=== PATIENT | male | born 1960 | race Two or more races ===

== ENCOUNTER 2024-08-07 11:29 | Inpatient (IN) | payer OTHER, SELFPAY ==
[~2024-08-07] VITALS: Ht 175.3 cm; Wt 118.0 kg
[2024-08-07 12:13] LABS: Basophils # (auto) 0 10 ^3/uL (0-0.2); Eosinophils # (auto) 0.2 10 ^3/uL (0-0.8); Hemoglobin 11.7 g/dL (13.5-17.5); Lymphocytes # (auto) 0.9 10 ^3/uL (0.4-5.4); Monocytes # (auto) 0.7 10 ^3/uL (0-1.3); White Blood Cell 5.8 10^3/uL (4.4-10.8)
[2024-08-07 12:14] LABS: Basophils % (auto) 0.7 % (0.0-2.0); Eosinophils % (auto) 2.9 % (0.0-7.0); Hematocrit 36.1 % (41.0-53.0); Lymphocytes % (auto) 15.3 % (10.0-50.0); Mean Corpuscular Hemoglobin 25.2 pg (28.0-32.0); Mean Corpuscular Hgb Conc. 32.5 g/dL (32.0-36.0); Mean Corpuscular Volume 77.5 fL (80.0-100.0); Monocytes % (auto) 12.7 % (0.0-12.0); Neutrophils % (auto) 68.4 % (37.0-80.0); Platelet Count (auto) 183 10^3/uL (140-450); Red Blood Cells 4.66 10^6/uL (4.5-5.90); Red Cell Distribution Width 15.4 % (11.8-14.3)
--- NOTE | 2024-08-07 12:31 | DVH ---
CHEST RADIOGRAPH Indication: SOB Technique: Single frontal view of the chest was obtained Comparison: None FINDINGS: Lines and Tubes: None Lungs: No focal consolidation. Pleura: No effusion. No pneumothorax. Cardiomediastinal contours: Unremarkable Bones: No acute osseous abnormality. IMPRESSION: No acute cardiopulmonary disease.
--- NOTE | 2024-08-07 12:33 | ED.PDOC ---
SOB-HPI HPI Comments 63y M who presents to the ED via EMS for chief complaint of shortness of breath. EMS states pt was at work earlier this AM and states while at work, he was lifting something and states he started to feel lower back pain radiating to his neck with associated unsteady gait. 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 Pt in the ED, is otherwise alert and oriented x4 and able to answer all questions. Pt otherwise has no changes in gait, vision, or speech. Pt has noted BP of 99/54 in the ED, with noted 02 sat of 100% on room air. Pt otherwise denies any other symptoms at this time. Chief Complaint: Shortness of Breath Time Seen by MD: 12:19 Primary Care Provider: TANISHA Reviewed notes: Nurses Notes Information Source: Patient, Emergency Med Personnel Mode of Arrival: EMS Brought in by: EMS Severity: Moderate Timing: Minutes, Hours Duration: Since onset Context: At Rest, With Light Exertion PE Risk Factors: None History of: None Prehospital treatment: None Modifying Factors: Exertion Associated Signs and Symptoms: Cough If cough with SOB: Non-Productive Past Medical History PAST MEDICAL HISTORY: HTN Surgical History (Other): L knee, bilateral hands Family History Family History: Unknown Social History Smoker: Non-Smoker Alcohol: Denies ETOH Use Drugs: Denies Drug Use Lives In: Home Constitutional: denies: chills, diaphoresis, fatigue, fever, malaise, sweats, weakness, others EENTM: denies: blurred vision, double vision, ear bleeding, ear discharge, ear drainage, ear pain, ear ringing, eye pain, eye redness, hearing loss, mouth pain, mouth swelling, nasal discharge, nose bleeding, nose congestion, nose pain, photophobia, tearing, throat pain, throat swelling, voice changes, others Respiratory: reports: shortness of breath; denies: cough, hemoptysis, orthopnea, SOB at rest, SOB with excertion, stridor, wheezing, others Cardiovascular: denies: chest pain, dizzy spells, diaphoresis, Dyspnea on exertion, edema, irregular heart beat, left arm pain, lightheadedness, palpitations, PND, syncope, others Gastrointestinal: denies: abdomen distended, abdominal pain, blood streaked bowels, constipated, diarrhea, dysphagia, difficulty swallowing, hematemesis, melena, nausea, poor appetite, poor fluid intake, rectal bleeding, rectal pain, vomiting, others Genitourinary: denies: burning, dysuria, flank pain, frequency, hematuria, incontinence, penile discharge, penile sore, pain, testicle pain, testicle swelling, urgency, others Neurological: denies: dizziness, fainting, headache, left sided numbness, left sided weakness, numbness, paresthesia, pre-existing deficit, right sided numbness, right sided weakness, seizure, speech problems, tingling, tremors, weakness, others Musculoskeletal: reports: back pain; denies: gout, joint pain, joint swelling, muscle pain, muscle stiffness, neck pain, others Integumetry: denies: bruises, change in color, change in hair/nails, dryness, laceration, lesions, lumps, rash, wounds, others Allergic/Immunocompromised: denies: Difficulty Healing, Frequent Infections, Hives, Itching, others Hematologic/Lymphatic: denies: anemia, blood clots, easy bleeding, easy bruising, swollen glands, others Endocrine: denies: excessive hunger, excessive sweating, excessive thirst, excessive urination, flushing, intolerance to cold, intolerance to heat, unexplained weight gain, unexplained weight loss, others Psychiatric: denies: anxiety, bipolar disorder, depression, hopeless, panic disorder, schizophrenia, sleepless, suicidal, others All Other Systems: Reviewed and Negative Physical Exam General Appearance: Moderate Distress, Obese HEENT: Normal ENT Inspection, Pharynx Normal, TMs Normal Neck: Full Range of Motion, Non-Tender, Normal, Normal Inspection Respiratory: Chest Non-Tender, Lungs Clear, No Accessory Muscle Use, No Respiratory Distress, Normal Breath Sounds Cardiovascular: No Edema, No JVD, No Murmur, No Gallop, Normal Peripheral Pulses, Regular Rate/Rhythm Breast Exam: Deferred Gastrointestinal: No Organomegaly, Non Tender, No Pulsatile Mass, Normal Bowel Sounds, Soft Genitalia: Deferred Pelvic: Deferred Rectal: Deferred Extremities: No calf tenderness, Normal capillary refill, Normal inspection, Normal range of motion, Non-tender, No pedal edema Musculoskeletal : Apperance: Normal 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 Was a procedure done?: No Differential Dx Differential Diagnosis: Bronchitis, CHF, COPD, Dysrhythmia, Hypertension, Myocardial infarction, Pneumonia, Respiratory Distress, Pharyngitis, URI X-Ray, Labs, Meds, VS Vital Signs Date Time Temp Pulse Resp B/P (MAP) Pulse Ox O2 Delivery O2 Flow Rate FiO2 08/07/24 19:17 98.6 75 132/63 (86) 96 98.6 08/07/24 12:33 76 08/07/24 11:47 16 100 Room Air* 0 21 08/07/24 11:42 98.0 64 16 99/54 (69) 100 08/07/24 11:37 76 Lab Test 08/07/24 18:34 08/07/24 13:07 08/07/24 11:59 Range/Units Urine Color Light-orange Yellow Urine Clarity Clear Clear Urine pH 6.0 5.0-9.0 Urine Specific [place] > 1.050 H 1.001-1.035 Urine Protein 1+ H Negative Urine Ketones Negative Negative Urine Blood Negative Negative /uL Urine Nitrite Negative Negative Urine Bilirubin Negative Negative Urine Urobilinogen Normal Negative mg/dL Urine Leukocyte Esterase Negative Negative /uL Urine RBC 1 0 - 3 /hpf Urine Microscopic WBC 1 0-3 /HPF Urine Squamous Epithelial Cells Few <5 /hpf Urine Bacteria None seen None Seen /hpf Urine Mucus Few None Seen Urine Glucose Normal Normal mg/dL Troponin I High Sensitivity 6 8 </=54 ng/L White Blood Count 5.8 4.4-10.8 10^3/uL Red Blood Count 4.66 4.5-5.90 10^6/uL Hemoglobin 11.7 L 13.5-17.5 g/dL Hematocrit 36.1 L 41.0-53.0 % Mean Corpuscular Volume 77.5 L 80.0-100.0 fL Mean Corpuscular Hemoglobin 25.2 L 28.0-32.0 pg Mean Corpuscular Hemoglobin Concent 32.5 32.0-36.0 g/dL Red Cell Distribution Width 15.4 H 11.8-14.3 % Platelet Count 183 140-450 10^3/uL Mean Platelet Volume 8.9 6.9-10.8 fL Neutrophils (%) (Auto) 68.4 37.0-80.0 % Lymphocytes (%) (Auto) 15.3 10.0-50.0 % Monocytes (%) (Auto) 12.7 H 0.0-12.0 % Eosinophils (%) (Auto) 2.9 0.0-7.0 % Basophils (%) (Auto) 0.7 0.0-2.0 % Neutrophils # (Auto) 4.0 1.6-8.6 10 ^3/uL Lymphocytes # (Auto) 0.9 0.4-5.4 10 ^3/uL Monocytes # (Auto) 0.7 0-1.3 10 ^3/uL Eosinophils # (Auto) 0.2 0-0.8 10 ^3/uL Basophils # (Auto) 0 0-0.2 10 ^3/uL Nucleated Red Blood Cells 0.0 % D-Dimer, Quantitative 1.41 H 0.0-0.49 mg/L FEU Sodium Level 138 136-145 mmol/L Potassium Level 4.2 3.5-5.1 mmol/L Chloride Level 107 98-107 mmol/L Carbon Dioxide Level 23 20-31 mmol/L Anion Gap 8 5-15 Blood Urea Nitrogen 31 H 9-23 mg/dL Creatinine 1.46 H 0.700-1.30 mg/dL Glomerular Filtration Rate Calc 54 >90 mL/min BUN/Creatinine Ratio 21.2 H 10.0-20.0 Serum Glucose 85 74-106 mg/dL Calcium Level 9.3 8.7-10.4 mg/dL B-Type Natriuretic Peptide 5.33 0-100 pg/mL PROCEDURE(s): CXRP - CHEST PORTABLE FINDINGS: Lines and Tubes: None Lungs: No focal consolidation. Pleura: No effusion. No pneumothorax. The patient's CBC is within normal limits The chemistry panel is within limits The patient's D-dimer was done in is elevated at this time At this time patient was being admitted The patient a CT scan done of the chest to rule out pulmonary embolism The findings were negative The patient was Images Reviewed?: Images reviewed and evaluated by me Time of 1ST Reevaluation: 12:50 Reevaluation 1ST: Unchanged Patient Education/Counseling: Diagnosis, Treatment Family Education/Counseling: No Family Present Additional Information - I reviewed the following notes from patient's past medical encounters: - The following tests were ordered, and results were reviewed by me: (Labs, X- Ray, EKG): CBC, chest x-ray, troponin x 3, bmp, UA, BNP, d-dimer, bmp, EKG x1 - Additional information was gathered from interviewing the following independent Historian: (Family, Other Providers, EMT): EMS, - I reviewed and agreed with the following test results read by other provider: (X-ray, CT, US): radiologist - I discussed treatments and results with medical personnel and: (consultants, family): none Departure 1 Departure Time of Disposition: 20:47 Impression: Primary Impression: Acute dyspnea Additional Impressions: Elevated d-dimer Acute chest pain Disposition: ADMITTED INPATIENT Admit to: Tele Condition: Fair Critical Care Note Critical Care Time?: No Stability Stability form required: Yes Unstable for transfer: Telemetry monitoring (Telemetry monitoring required), ED Physician Assesment (Clinical assesment) Heart Score Heart Score: Heart Score Response (Comments) Value History Slightly Suspicious 0 EKG Normal 0 Age 45-64 1 Risk Factors 1 or 2 risk factors 1 Troponin Normal limit 0 Total 2 I personally scribed for SANAZ DORAN MD ([email or web address]) on 08/07/24 at 12:33. Electronically submitted by Heena Velazquez ([email or web address]). I personally scribed for SANAZ DORAN MD ([email or web address]) on 08/07/24 at 12:39. Electronically submitted by Heena Velazquez ([email or web address]). SANAZ DORAN MD Aug 07, 2024 12:33
[2024-08-07 13:27] LABS: Chloride 107 mmol/L (98-107); Potassium 4.2 mmol/L (3.5-5.1); Sodium 138 mmol/L (136-145)
[2024-08-07 13:28] LABS: Anion Gap 8 (5-15); Calcium 9.3 mg/dL (8.7-10.4); Carbon Dioxide 23 mmol/L (20-31)
[2024-08-07 13:33] LABS: BUN/Creatinine Ratio 21.2 (10.0-20.0); Glucose 85 mg/dL (74-106)
[2024-08-07 13:37] LABS: Blood Urea Nitrogen 31 mg/dL (9-23)
[2024-08-07] MEDS: IOHEXOL 350 MG/ML 100ML IJ ONE (17:25)
--- NOTE | 2024-08-07 18:44 | DVH ---
PROCEDURE: CT CT ANGIO CHEST CONTRAST 08/07/2024 06:03 PM INDICATION: sob COMPARISON: None TECHNIQUE: Coverage: Thorax IV contrast: Administered Phases: Arterial Multiplanar 3-D Maximum Intensity Projection images (MIP) reconstructions were created by the technfranc contreras in the coronal and sagittal planes as part of the CT angiography protocol. Adverse events: None Medication laboratory values were reviewed to verify the patient meets criteria for contrast administ ration. All CT scans at this medical facility are performed using dose modulation techniques as appropriate t o a performed exam including the following: Automated exposure control was utilized; adjustment of th e MA and/or KV according to patient size; and use of iterative reconstruction technique. Radiation dose: CTDIvol 28, 11 mGy, DLP 1041 mGy*cm. FINDINGS: Cardiovascular: No evidence of acute or chronic pulmonary emboli identified. Aorta is normal in calib er. The heart is normal in size. Lungs: No focal consolidation. No pleural effusion. No pneumothorax. The airways are patent. Thyroid: Unremarkable Esophagus: Unremarkable. Lymphatics: No hilar or mediastinal lymphadenopathy. Bones/soft tissues: No acute abnormality. Upper abdomen: No acute abnormality. Hepatomegaly and hepatic steatosis. Other: None. IMPRESSION: 1. No evidence of acute pulmonary emboli. No acute cardiopulmonary disease.
[2024-08-07 19:23] LABS: Urine Bacteria None Seen /hpf (None Seen)
[2024-08-07 19:48] LABS: Urine Blood Negative /uL (Negative); Urine Clarity Clear (Clear); Urine Color Light-Orange (Yellow); Urine Mucus FEW (None Seen); Urine Protein, UAD 1+ (Negative); Urine Squamous Epithelial Cell FEW /hpf (<5); Urine Urobilinogen Normal (Negative); Urine WBC 1 /HPF (0-3)
[2024-08-07 19:54] LABS: Urine Specific Gravity > 1.050 (1.001-1.035)
[2024-08-07 21:00] VITALS: BP 93/53; PULSE 86; RESP 17; TEMP 98.2; O2SAT 100
--- NOTE | 2024-08-07 22:39 | DVHHPRES ---
History of Present Illness Resident Creating Document: STACI LEE RESDIENT History of Present Illness This is a 63-year-old male with past medical history of hypertension, brought to the hospital due to low back pain. Per patient, today morning, after lifting something he has felt severe low back pain which was radiating to the neck. He also reports of blurry vision, dizziness and shortness of breaths. Patient states, due to dizziness he had to lie on the ground, but did not loss consciousness. PMHx: Hypertension PSHx: Not significant Social history: Ex-smoker, ex alcohol user, lives at home, denies any other drug use Home medication: Telmisartan Allergic history: No known allergies Review of Systems Review of Systems General: patient denies fever, fatigue, weaknes, sweating, any recent changes in appetite and weight HEENT: Reports dizziness and blurry vision, and sore throat since 2 days Cardiovascular: Denies chest pain, palpitations, dyspnea on exertion, orthopnea, or claudication. Respiratory: Reports shortness of breath Gastrointestinal: Denies nausea, vomiting, dysphagia, odynophagia, heartburn, abdominal pain, flatulence, bloating, diarrhea, constipation, change in stool, or blood in stool. Genitourinary: No dysuria, hematuria, discharge, frequency, urgency, nocturia, incontinence, and urinary retention. Endocrine: No heat or cold intolerance, polydipsia, polyuria, and polyphagia. Neurological: No dizziness, extremity weakness and numbness, tremors, gait disturbance, seizures, and memory impairment. Psychiatric: Denies depression, anxiety,or insomnia. Musculoskeletal: Reports low back pain radiating to the neck Skin: No rashes, itching, skin lesion, changes in hair, nail, skin texture and breast. Hematologic/Lymphatic: Denies easy bruising, bleeding tendencies, or lymph node enlargement. Allergies: Coded Allergies: NO KNOWN ALLERGIES (Unverified , 08/07/24) Exam Vital Signs Vital Signs Date Time Temp Pulse Resp B/P (MAP) Pulse Ox O2 Delivery O2 Flow Rate FiO2 08/07/24 19:17 98.6 75 132/63 (86) 96 98.6 08/07/24 11:47 16 Room Air* 0 21 Exam General Appearance: Alert, Oriented X3, Cooperative, No acute distress HEENT: Atraumatic, PERRLA, EOMI, Mucous membrane moist/pink Respiratory: Clear to auscultation, Normal air movement Cardiovascular: Regular rate, Normal S1, Normal S2, No murmurs, no chest wall tenderness Abdominal: Normal bowel sounds, Soft, No tenderness, No hepatospenomegaly, No masses Extremities: No clubbing, No cyanosis, No edema, Normal pulses, No tenderne ss/swelling Skin: No rashes, No breakdown, No significant lesion Neurological exam: Detailed neurological exam was performed, no motor deficits, no sensory deficits, normal gait and balance, no Babinski sign, at the time of examination there was also no back tenderness Psych/Mental Status: Mental status NL, Mood NL Labs/Xrays Labs Test 08/07/24 18:34 08/07/24 13:07 08/07/24 11:59 Range/Units Urine Color Light-orange Yellow Urine Clarity Clear Clear Urine pH 6.0 5.0-9.0 Urine Specific [place] > 1.050 H 1.001-1.035 Urine Protein 1+ H Negative Urine Ketones Negative Negative Urine Blood Negative Negative /uL Urine Nitrite Negative Negative Urine Bilirubin Negative Negative Urine Urobilinogen Normal Negative mg/dL Urine Leukocyte Esterase Negative Negative /uL Urine RBC 1 0 - 3 /hpf Urine Microscopic WBC 1 0-3 /HPF Urine Squamous Epithelial Cells Few <5 /hpf Urine Bacteria None seen None Seen /hpf Urine Mucus Few None Seen Urine Glucose Normal Normal mg/dL Troponin I High Sensitivity 6 </=54 ng/L White Blood Count 5.8 4.4-10.8 10^3/uL Red Blood Count 4.66 4.5-5.90 10^6/uL Hemoglobin 11.7 L 13.5-17.5 g/dL Hematocrit 36.1 L 41.0-53.0 % Mean Corpuscular Volume 77.5 L 80.0-100.0 fL Mean Corpuscular Hemoglobin 25.2 L 28.0-32.0 pg Mean Corpuscular Hemoglobin Concent 32.5 32.0-36.0 g/dL Red Cell Distribution Width 15.4 H 11.8-14.3 % Platelet Count 183 140-450 10^3/uL Mean Platelet Volume 8.9 6.9-10.8 fL Neutrophils (%) (Auto) 68.4 37.0-80.0 % Lymphocytes (%) (Auto) 15.3 10.0-50.0 % Monocytes (%) (Auto) 12.7 H 0.0-12.0 % Eosinophils (%) (Auto) 2.9 0.0-7.0 % Basophils (%) (Auto) 0.7 0.0-2.0 % Neutrophils # (Auto) 4.0 1.6-8.6 10 ^3/uL Lymphocytes # (Auto) 0.9 0.4-5.4 10 ^3/uL Monocytes # (Auto) 0.7 0-1.3 10 ^3/uL Eosinophils # (Auto) 0.2 0-0.8 10 ^3/uL Basophils # (Auto) 0 0-0.2 10 ^3/uL Nucleated Red Blood Cells 0.0 % D-Dimer, Quantitative 1.41 H 0.0-0.49 mg/L FEU Sodium Level 138 136-145 mmol/L Potassium Level 4.2 3.5-5.1 mmol/L Chloride Level 107 98-107 mmol/L Carbon Dioxide Level 23 20-31 mmol/L Anion Gap 8 5-15 Blood Urea Nitrogen 31 H 9-23 mg/dL Creatinine 1.46 H 0.700-1.30 mg/dL Glomerular Filtration Rate Calc 54 >90 mL/min BUN/Creatinine Ratio 21.2 H 10.0-20.0 Serum Glucose 85 74-106 mg/dL Calcium Level 9.3 8.7-10.4 mg/dL B-Type Natriuretic Peptide 5.33 0-100 pg/mL Assessment/Plan Assessment/Plan Presyncope Head CT scan Echocardiogram Ruled out pulmonary emboli D-dimer is increased Chest CT angiography is normal Possible muscle strain On physical examination there was no neurological deficits Tylenol p.r.n. Possible JOSEPH, likely VMN IV fluid History of hypertension Held telmisartan due to possible JOSEPH Mild anemia, hypochromic microcytic Monitoring Vitamin-D deficiency, repleted DIET: Cardiac CODE STATUS: Goal of care discussed for more than 21 minutes, full code DISPOSITION: Telemetry Patient's status and paln discussed with the patient. Case discussed with Dr. Wise. Plan discussed with: Patient, Other My Orders Orders - STACI LEE RESDIWILMER Procedure Category Date Status Time Admit ADMIT 08/07/24 Transmitted 22:19 Stat Ekg For Chest RUPINDER 08/07/24 In Process Pain 22:19 Notify Md Of Changes RUPINDER 08/07/24 In Process From Base 22:19 Date of Service: Aug 07, 2024 Billing Provider: SHEILA WISE MD Common Visit Codes: [id number] INP/OBS CARE (HIGH) STACI LEE RESDIENT Aug 07, 2024 22:39 SHEILA WISE MD Aug 08, 2024 23:09
[2024-08-07] MEDS ORDERED: SODIUM CHLORIDE 0.9% 500 ML IV ONE (22:45)
[2024-08-07 23:32] LABS: Sodium Urine 31 mmol/L (40-220)
[2024-08-07 23:37] LABS: Protein, Urine 26.8 mg/dL (1-14)
[2024-08-07 23:39] LABS: Amphetamine Screen, Urine Pos (NEGATIVE); Barbiturate Scree,Urine Neg (NEGATIVE); Benzodiazephine Screen, Urine Neg (NEGATIVE); Cannabinoid Screen, Urine Pos (NEGATIVE); Cocaine Screen, Urine Neg (NEGATIVE); Opiate Scree,Urine Neg (NEGATIVE); Phencyclidine Screen, Urine Neg (NEGATIVE)
[2024-08-07 23:39] LABS: Triglycerides 100 mg/dL (< 150)
--- NOTE | 2024-08-07 23:39 | DVH ---
CLINICAL HISTORY: Raised d dimer TECHNIQUE: Color and duplex doppler imaging of the bilateral lower extremity veins was performed. Ves laura compression if possible was also performed. WID: COMPARISON: None FINDINGS: Right Lower Extremity: Right common femoral vein: Normal compressibility and flow. Right femoral vein: Normal compressibility and flow. Right popliteal vein: Normal compressibility and flow. Proximal calf veins are normally compressible. Left Lower Extremity: Left common femoral vein: Normal compressibility and flow. Left femoral vein: Normal compressibility and flow. Left popliteal vein: Normal compressibility and flow. Proximal calf veins are normally compressible. IMPRESSION: NO SONOGRAPHIC EVIDENCE FOR DEEP VENOUS THROMBOSIS IN THE BILATERAL LOWER EXTREMITY VEINS.
[2024-08-07 23:40] LABS: LDL Cholesterol 83 mg/dL (< 100)
[2024-08-07 23:41] LABS: Cholesterol 133 mg/dL (< 200); HDL Cholesterol 41 mg/dL (40-59)
[2024-08-08] VITALS (8 sets, daily range): BP systolic 89–137; BP diastolic 43–71; PULSE 65–85; RESP 15–18; TEMP 97.8–98.4; O2SAT 94–99
[2024-08-08 00:05] LABS: Folate (Folic Acid) 18.49 ng/mL (>5.38)
[2024-08-08] MEDS: SODIUM CHLORIDE 0.9% 1,000 ML IV SCH (02:07)
[2024-08-08] MEDS ORDERED: ACETAMINOPHEN 325 MG TAB PO PRN (03:30)
[2024-08-08] MEDS: ERGOCALCIFEROL 50,000 UNIT(1.25MG) CAP PO SCH (04:12)
--- NOTE | 2024-08-08 04:37 | DVH ---
Carotid Duplex Date: 08/07/2024 11:09 PM Clinical History: syncope Comparison: None Technique: Duplex Doppler evaluation of the extracranial carotid and vertebral arteries including color Doppler and spectral/pulsed waveform analysis was performed. Findings: RIGHT SIDE: Mild atherosclerotic disease in the right carotid bulb. The peak systolic velocities are 114 cm/s in the distal CCA and 122 cm/s in the proximal ICA.The ICA/ CCA ratio is 1.1. The external carotid artery is patent with peak systolic velocity of 143 cm/s proximally. There is appropriate antegrade flow in the right vertebral artery. LEFT SIDE: The peak systolic velocities are 116 cm/s in the distal CCA and 123 cm/s in the proximal ICA.. The I CA/CCA ratio is 1.1. The external carotid artery is patent with peak systolic velocity of 133 cm/s proximally. There is appropriate antegrade flow in the left vertebral artery. IMPRESSION: 1. No hemodynamically significant stenosis noted in the right carotid system. 2. No hemodynamically significant stenosis noted in the left carotid system. 3. Reference: Radiology 2003; 229:340-346
[2024-08-08 07:17] LABS: Hemoglobin 9.7 g/dL (13.5-17.5); Mean Corpuscular Volume 76.8 fL (80.0-100.0)
[2024-08-08 07:21] LABS: Hematocrit 30.2 % (41.0-53.0); Mean Corpuscular Hemoglobin 24.6 pg (28.0-32.0); Mean Corpuscular Hgb Conc. 32.1 g/dL (32.0-36.0); Platelet Count (auto) 153 10^3/uL (140-450); Red Blood Cells 3.93 10^6/uL (4.5-5.90); Red Cell Distribution Width 15.2 % (11.8-14.3); White Blood Cell 3.3 10^3/uL (4.4-10.8)
[2024-08-08 07:24] LABS: Band Neutrophils % (manual) 0; Basophils % (manual) 0 (0.0-2.0); Blast Cells 0; Metamyelocytes % 0; Myelocytes % 0; Promyelocytes % 0; Reactive Lymphocytes 0
[2024-08-08 07:49] LABS: Alkaline Phosphatase 83 U/L (46-116); Anion Gap 8 (5-15); BUN/Creatinine Ratio 23.9 (10.0-20.0); Carbon Dioxide 22 mmol/L (20-31); Glucose 91 mg/dL (74-106); Sodium 139 mmol/L (136-145)
[2024-08-08 07:50] LABS: Albumin 3.9 g/dL (3.2-4.8); Bilirubin, Total 0.5 mg/dL (0.2-1.0); Total Protein 6.1 g/dL (5.7-8.2)
[2024-08-08 07:51] LABS: Alanine Aminotransferase 48 U/L (7-40); Aspartate Aminotransferase 47 U/L (13-40); Blood Urea Nitrogen 27 mg/dL (9-23); Calcium 8.6 mg/dL (8.7-10.4); Chloride 109 mmol/L (98-107)
[2024-08-08 09:18] LABS: Eosinophils % (manual) 9 (0-7); Lymphocytes % (manual) 31 (10.0-50.0); Monocytes % (manual) 15 (0-12)
[2024-08-08 09:19] LABS: Hypochromia Slight; Platelet Estimate Adequate
--- NOTE | 2024-08-08 09:39 | DVH ---
EXAM: CT HEAD WITHOUT CONTRAST INDICATION: Syncope TECHNIQUE: CT of the head without intravenous contrast. Radiation Dose Information: CT Dose: CTDI volume is 55.7 mGy. Dose-length product is 892.85 mGy*cm The dose indicators for CT are the volume Computed Tomography (CT) Dose Index (CTDIvol) and the Dose Length Product (DLP), and are measured in units of mGy and mGy-cm, respectively. These indicators are not patient dose, but values generated from the CT scanner acquisition factors. The report includes radiation exposure data for exposures received during this examination. COMPARISON: None FINDINGS: There is no evidence of acute intracranial hemorrhage, extra-axial collection, mass effect, midline s hift, herniation or hydrocephalus. The ventricles, sulci and cisterns are age appropriate. The oneill-white differentiation is intact. Patchy periventricular and subcortical white matter hypoattenuation is nonspecific but may be related to small vessel ischemic disease. The visualized paranasal sinuses and mastoid air cells are clear. The surrounding soft tissues and osseous structures are unremarkable. IMPRESSION: No acute intracranial abnormality.
--- NOTE | 2024-08-08 11:11 | DVHSR ---
APPROVED REPORT EXAM: Two-dimensional and M-mode echocardiogram with Doppler and color Doppler. Blood Pressure: 111/55 mmHg INDICATION pre syncope RISK FACTORS Obesity: Height: 5'9, Weight: 260 DIMENSIONS LVDd4.7 (3.8-5.7cm)LA (2D)4.5 (1.9-4.0cm)Aortic Root3.2 (2.0-3.7cm) LVDs3.1 (2.5-4.0cm)LA (MM) (1.9-4.0cm)Aortic Cusp Exc1.5 (1.5-2.0cm) EF (%) 60.0 (55-70%)Rt. Atrium4.2 (1.9-4.0cm)Asc. Aorta3.6 cm IVSd1.1 (0.7-1.1cm)RV (D)4.0 (1.8-2.4cm) PWd1.0 (0.7-1.1cm) Mitral Valve MitralMitral Stenosis E wave0.77m/sMV Mean GR.mmHg A wave0.91m/sMV Peak GR.95mmHg E/A ratio0.82D MVAcm2 DECEL [id number] 1/2 [place] Aortic Valve Aortic ValveAortic Stenosis V11.52m/[place] Mean GR.7mmHg V21.71m/[place] Peak GR.12mmHg LVOT Diameter1.9 (1.8-2.4cm)Doppler AVA2.52cm2 Pulmonic Valve V20.94m/s Tricuspid Valve TR Velocity2.68m/s [id number] LEFT VENTRICLE The left ventricle is of normal size. Wall thickness is normal. Ejection fraction is normal and is estimated at 60%. There is no regional wall motion abnormalities. Diastolic function is indetermina te. E to E prime ratio is in the normal range. RIGHT VENTRICLE The right ventricle is of normal size. Systolic function is normal. ATRIA Both atria are of normal size. Intra-atrial septum is not well visualized. MITRAL VALVE Normal structure and function. No significant mitral regurgitation. PULMONIC VALVE Likely normal. TRICUSPID VALVE Normal structure and function. There is mild tricuspid regurgitation. PA systolic pressure is estim ated at 35-40 mm Hg. AORTIC VALVE There is mild calcification of the aortic valve leaflets. No significant stenosis or regurgitation. GREAT VESSELS The aortic root is of normal size. Proximal ascending aorta isn't visualized. PERICARDIAL EFFUSION No significant pericardial effusion. IVC is not visualized. Conclusion Normal left ventricular size and systolic function. Ejection fraction is estimated at 60%. Normal right ventricular size and systolic function. Mildly calcified aortic valve with no significant stenosis. PA systolic pressure is estimated at 35-40 mm Hg.
--- NOTE | 2024-08-08 12:48 | DVH ---
INDICATION: Back pain TECHNIQUE: 4 views of the lumbar spine were obtained. COMPARISON: None FINDINGS: There are no acute fractures or subluxations. Degenerative disc space narrowing at L5-S1. Suggestion of possible mild to moderate neural foraminal stenosis at L5-S1. IMPRESSION: No acute fracture or subluxation.
--- NOTE | 2024-08-08 12:50 | ECG ---
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
[2024-08-08] MEDS ORDERED: BACL5TAB2 PO (13:57)
--- NOTE | 2024-08-08 14:35 | DVHDSRES ---
Discharge Summary Date of Admission Resident Creating Document: DARSHAN IRBY RESIDENT Aug 07, 2024 at 22:19 Date of Discharge: Aug 08, 2024 Admitting Diagnosis Presyncope likely due to dehydration Possible muscle strain Wounds: No wound was present. Labs/Diagnostic Data: Laboratory Results Test 08/08/24 08:45 08/08/24 06:20 08/07/24 23:33 08/07/24 18:34 Cortisol AM Sample 4.57 ug/dL (5.27-22.45) White Blood Count 3.3 10^3/uL (4.4-10.8) Red Blood Count 3.93 10^6/uL (4.5-5.90) Hemoglobin 9.7 g/dL (13.5-17.5) Hematocrit 30.2 % (41.0-53.0) Mean Corpuscular Volume 76.8 fL (80.0-100.0) Mean Corpuscular Hemoglobin 24.6 pg (28.0-32.0) Mean Corpuscular Hemoglobin Concent 32.1 g/dL (32.0-36.0) Red Cell Distribution Width 15.2 % (11.8-14.3) Platelet Count 153 10^3/uL (140-450) Mean Platelet Volume 9.3 fL (6.9-10.8) Neutrophils (%) (Auto) % (37.0-80.0) Lymphocytes (%) (Auto) % (10.0-50.0) Monocytes (%) (Auto) % (0.0-12.0) Basophils (%) (Auto) % (0.0-2.0) Neutrophils # (Auto) 10 ^3/uL (1.6-8.6) Lymphocytes # (Auto) 10 ^3/uL (0.4-5.4) Monocytes # (Auto) 10 ^3/uL (0-1.3) Differential Total Cells Counted 100.0 (100) Neutrophils % (Manual) 45 (37.0-80.0) Band Neutrophils % (Manual) 0 Lymphocytes % (Manual) 31 (10.0-50.0) Monocytes % (Manual) 15 (0-12) Eosinophils % (Manual) 9 (0-7) Basophils % (Manual) 0 (0.0-2.0) Metamyelocytes % (manual) 0 Myelocytes % (Manual) 0 Promyelocytes % (Manual) 0 Blast Cells % (Manual) 0 Reactive Lymphocytes 0 Platelet Estimate Adequate Hypochromasia (manual) Slight Microcytosis Slight Sodium Level 139 mmol/L (136-145) Potassium Level 4.0 mmol/L (3.5-5.1) Chloride Level 109 mmol/L (98-107) Carbon Dioxide Level 22 mmol/L (20-31) Anion Gap 8 (5-15) Blood Urea Nitrogen 27 mg/dL (9-23) Creatinine 1.13 mg/dL (0.700-1.30) Glomerular Filtration Rate Calc 74 mL/min (>90) BUN/Creatinine Ratio 23.9 (10.0-20.0) Serum Glucose 91 mg/dL (74-106) Calcium Level 8.6 mg/dL (8.7-10.4) Total Bilirubin 0.5 mg/dL (0.2-1.0) Aspartate Amino Transferase (AST) 47 U/L (13-40) Alanine Aminotransferase (ALT) 48 U/L (7-40) Alkaline Phosphatase 83 U/L (46-116) Total Protein 6.1 g/dL (5.7-8.2) Albumin 3.9 g/dL (3.2-4.8) Vitamin B12 Level 882 pg/mL (211-911) Vitamin D 25-Hydroxy 21.0 ng/mL (30.0-100) Folic Acid 18.49 ng/mL (>5.38) Urine Color Light-orange (Yellow) Urine Clarity Clear (Clear) Urine pH 6.0 (5.0-9.0) Urine Specific [place] > 1.050 (1.001-1.035) Urine Protein 1+ (Negative) Urine Ketones Negative (Negative) Urine Blood Negative /uL (Negative) Urine Nitrite Negative (Negative) Urine Bilirubin Negative (Negative) Urine Urobilinogen Normal mg/dL (Negative) Urine Leukocyte Esterase Negative /uL (Negative) Urine RBC 1 /hpf (0 - 3) Urine Microscopic WBC 1 /HPF (0-3) Urine Squamous Epithelial Cells Few /hpf (<5) Urine Bacteria None seen /hpf (None Seen) Urine Mucus Few (None Seen) Urine Creatinine 212.50 mg/dL (30.0-125.0) Urine Sodium 31 mmol/L (40-220) Urine Glucose Normal mg/dL (Normal) Urine Total Protein 26.8 mg/dL (1-14) Urine Opiates Screen Neg (NEGATIVE) Urine Fentanyl Screen Neg (NEGATIVE) Urine Barbiturates Screen Neg (NEGATIVE) Urine Phencyclidine Screen Neg (NEGATIVE) Urine Amphetamines Screen Pos (NEGATIVE) Urine Benzodiazepines Screen Neg (NEGATIVE) Urine Cocaine Screen Neg (NEGATIVE) Urine Cannabinoids Screen Pos (NEGATIVE) Test 08/07/24 13:07 08/07/24 11:59 Troponin I High Sensitivity 6 ng/L (</=54) Triglycerides Level 100 mg/dL (< 150) Cholesterol Level 133 mg/dL (< 200) LDL Cholesterol 83 mg/dL (< 100) HDL Cholesterol 41 mg/dL (40-59) Thyroid Stimulating Hormone (TSH) 0.83 uIU/mL (0.55-4.78) Eosinophils (%) (Auto) 2.9 % (0.0-7.0) Eosinophils # (Auto) 0.2 10 ^3/uL (0-0.8) Basophils # (Auto) 0 10 ^3/uL (0-0.2) Nucleated Red Blood Cells 0.0 % D-Dimer, Quantitative 1.41 mg/L FEU (0.0-0.49) B-Type Natriuretic Peptide 5.33 pg/mL (0-100) Other Laboratory Tests 08/08/24 06:20 Brief Hx & Hospital Course: This is a 63-year-old male with past medical history of hypertension, brought to the hospital due to low back pain. Per patient, today morning, after lifting something he has felt severe low back pain which was radiating to the neck. He also reports of blurry vision, dizziness and shortness of breaths. Patient states, due to dizziness he had to lie on the ground, but did not loss consciousness. Hospital course: initial detailed neurological exam and musculoskeletal exam both revealed normal. CTA revealed no acute intracranial abnormality, ground head Doppler showed no significant hemodynamically significant stenosis in the bilateral carotids arteries, CT angio ruled out possibility of pulmonary embolism, Doppler lower extremity revealed no sign of DVT and lumbar spine x-ray revealed no fracture or dislocation. treated with IV bolus normal saline 1.5 L and acetaminophen 650 mg q.6 p.r.n. and supplemented vitamin-D deficiency with ergocalciferol 82697 units Q 7D. Today morning during round patient did not complaint any back pain and discharge plan was discussed with the patient and all questions were answered. patient is being discharged to home. Discharge diagnosis: Presyncope likely due to dehydration Possible muscle strain Ruled out pulmonary emboli Possible JOSEPH secondary to hemodynamically mediated / VMN History of hypertension Vitamin-D deficiency Discharge Plan: Discharge disposition: Home Medications : Beclofen 5 mg daily for 5 days , ergocalciferol 34893 units Q 7D for 10 weeks and continue home medications. Follow up : PCP in 1 week. Consults/Reason for consult No consultation was present Operations or Procedures PROCEDURE: CT CT ANGIO CHEST CONTRAST 08/07/2024 06:03 PM INDICATION: sob COMPARISON: None TECHNIQUE: Coverage: Thorax IV contrast: Administered Phases: Arterial Multiplanar 3-D Maximum Intensity Projection images (MIP) reconstructions were created by the technologist in the coronal and sagittal planes as part of the CT angiography protocol. Adverse events: None Medication laboratory values were reviewed to verify the patient meets criteria for contrast administration. All CT scans at this medical facility are performed using dose modulation techniques as appropriate to a performed exam including the following: Automated exposure control was utilized; adjustment of the MA and/or KV according to patient size; and use of iterative reconstruction technique. Radiation dose: CTDIvol 28, 11 mGy, DLP 1041 mGy*cm. FINDINGS: Cardiovascular: No evidence of acute or chronic pulmonary emboli identified. Aorta is normal in caliber. The heart is normal in size. Lungs: No focal consolidation. No pleural effusion. No pneumothorax. The airways are patent. Thyroid: Unremarkable Esophagus: Unremarkable. Lymphatics: No hilar or mediastinal lymphadenopathy. Bones/soft tissues: No acute abnormality. Upper abdomen: No acute abnormality. Hepatomegaly and hepatic steatosis. Other: None. IMPRESSION: 1. No evidence of acute pulmonary emboli. No acute cardiopulmonary disease. Carotid Duplex Date: 08/07/2024 11:09 PM Clinical History: syncope Comparison: None Technique: Duplex Doppler evaluation of the extracranial carotid and vertebral arteries including color Doppler and spectral/pulsed waveform analysis was performed. Findings: RIGHT SIDE: Mild atherosclerotic disease in the right carotid bulb. The peak systolic velocities are 114 cm/s in the distal CCA and 122 cm/s in the proximal ICA.The ICA/CCA ratio is 1.1. The external carotid artery is patent with peak systolic velocity of 143 cm/s proximally. There is appropriate antegrade flow in the right vertebral artery. LEFT SIDE: The peak systolic velocities are 116 cm/s in the distal CCA and 123 cm/s in the proximal ICA.. The ICA/CCA ratio is 1.1. The external carotid artery is patent with peak systolic velocity of 133 cm/s proximally. There is appropriate antegrade flow in the left vertebral artery. IMPRESSION: 1. No hemodynamically significant stenosis noted in the right carotid system. 2. No hemodynamically significant stenosis noted in the left carotid system. EXAM: CT HEAD WITHOUT CONTRAST INDICATION: Syncope TECHNIQUE: CT of the head without intravenous contrast. Radiation Dose Information: CT Dose: CTDI volume is 55.7 mGy. Dose-length product is 892.85 mGy*cm The dose indicators for CT are the volume Computed Tomography (CT) Dose Index (CTDIvol) and the Dose Length Product (DLP), and are measured in units of mGy and mGy-cm, respectively. These indicators are not patient dose, but values generated from the CT scanner acquisition factors. The report includes radiation exposure data for exposures received during this examination. COMPARISON: None FINDINGS: There is no evidence of acute intracranial hemorrhage, extra-axial collection, mass effect, midline shift, herniation or hydrocephalus. The ventricles, sulci and cisterns are age appropriate. The oneill-white differentiation is intact. Patchy periventricular and subcortical white matter hypoattenuation is nonspecific but may be related to small vessel ischemic disease. The visualized paranasal sinuses and mastoid air cells are clear. The surrounding soft tissues and osseous structures are unremarkable. IMPRESSION: No acute intracranial abnormality. INDICATION: Back pain TECHNIQUE: 4 views of the lumbar spine were obtained. COMPARISON: None FINDINGS: There are no acute fractures or subluxations. Degenerative disc space narrowing at L5-S1. Suggestion of possible mild to moderate neural foraminal stenosis at L5-S1. IMPRESSION: No acute fracture or subluxation. Condition at Discharge: Stable Final Diagnosis/Problems List Presyncope likely due to dehydration Possible muscle strain Ruled out pulmonary emboli Possible JOSEPH secondary to hemodynamically mediated / VMN History of hypertension Vitamin-D deficiency Discharge Disposition: Home Discharge Instruct/Medications Diet: Cardiac 2g Na,low cholest Activity: No Restrictions, As Tolerated Follow Up/Referral: Follow up with PCP in 1 week. Medications: Baclofen 5 mg, 1 tab daily for 5 days, ergocalciferol 99223 unit Q7D for 10 weeks. Discharge Statement: "Patient was advised to return to the ER or call 911 if any headaches, dizziness, shortness of breath, chest pain, abdominal pain, bleeding, fevers, or worsening of medical condition. Patient was counseled about treatment plan, medications, possible side effects, patientverbalized understanding. All questions were answered to the best of my ability. This discharge took greater then 30 minutes in planning, reviewing documentation, counseling the patient, and discussing with other team members." ASSESSMENT ASSESSMENT Assessment Presyncope likely due to dehydration Possible muscle strain Ruled out pulmonary emboli Possible JOSEPH secondary to hemodynamically mediated / VMN History of hypertension Vitamin-D deficiency Date of Service: Aug 08, 2024 Billing Provider: MELO MORALES MD Common Visit Codes: 50895-CFZ/OBS DISCH DAY >30min DARSHAN IRBY RESIDENT Aug 08, 2024 14:35 MELO MORALES MD Aug 12, 2024 09:48
[2024-08-08] MEDS ORDERED: ERGO1CAP23 PO (17:10)
[2024-08-09 06:06] LABS: RPR Non Reactive (Non Reactive)
== END 2024-08-08 17:30 | disposition home or self-care (01) | DRG 640 ==
LOC: EDBD 11:29 → ER 12:09 → OVERFLOW 22:19 → ER 22:22 → TELE-WESTW 22:24
PROVIDERS: ATTEND Emergency Medicine
DX: E86.0 Dehydration (principal); N17.0 Acute kidney failure with tubular necrosis; D50.9 Iron deficiency anemia, unspecified; E55.9 Vitamin D deficiency, unspecified; T14.8XXA Other injury of unspecified body region, initial encounter; I10 Essential (primary) hypertension; X58.XXXA Exposure to other specified factors, initial encounter; Z87.891 Personal history of nicotine dependence; Y93.89 Activity, other specified; Y92.89 Other specified places as the place of occurrence of the external cause; Y99.8 Other external cause status
CPT/HCPCS: 36415; 70450; 71045; 71275; 72100; 80048; 80053; 80061; 80307; 81001; 82306; 82533; 82570; 82607; 82746; 83880; 84156; 84300; 84443; 84484; 85007; 85025; 85027; 85379; 86592; 93005; 93306; 93886; 93970; G0378